=== PATIENT | male | born 1980 | race Caucasian/White ===

== ENCOUNTER 2024-09-06 13:20 | Emergency (ER) | payer SELFPAY ==
[~2024-09-06] VITALS: Ht 188 cm; Wt 109.1 kg
[2024-09-06 13:24] VITALS: RESP 18; O2SAT 99
[2024-09-06 14:11] VITALS: PULSE 96
[2024-09-06] MEDS: hyDRALAzine 10mg tablet PO ONE (14:11)
[2024-09-06 14:48] VITALS: BP 160/115
== END 2024-09-06 14:50 ==
LOC: ER 13:23
DX: I10 Essential (primary) hypertension (principal)
CPT/HCPCS: 93005; 99283